=== PATIENT | female | born 1975 | race Caucasian/White ===

== ENCOUNTER → 2017-04-12 | Outpatient (CLI) | payer MEDICAID ==
[~2017-04-12] MED LIST: ATIVAN1 MG PO; BUSPAR 10MG TAB10 MG PO; EFFEXOR100 MG PO; FLEET ENEMA 13135 ML RC; IBUPROFEN800 MG PO; LEVOTHYROXINE0.15 MG PO; LORTAB 5/500 501 TAB PO; MAGNESIUM CITRA1 BOT PO; NAPROSYN 500MG500 MG PO; NEURONTIN800 MG PO; PEN-VK500 MG PO; PHENERGAN 25MG.25 M1 PO; SEROQUEL200 MG PO; ULTRAM 50 MG TA50 MG PO; VICODIN 5/500 T1 TAB PO
--- NOTE | 2017-04-13 09:56 | RADIOLOGY REPORT PS360 ---
MRI-LOW EXT ANY JOINT W/O-LT HISTORY: Anterior and posterior knee pain following injury INJURY OF LT KNEE, INITIAL ENCOUNTER ORDERING PHYSICIAN: LUDIN MCDONOUGH MD PATIENT AGE: 41 years COMPARISON: Radiograph of 03/21/2017 TECHNIQUE: Standard multiplanar multiecho sequences are performed without contrast. FINDINGS: There is discontinuity of the mid aspect of the posterior cruciate ligament consistent with tear of the PCL. The margins of the tear are somewhat alignment in nature and mildly contracted. There is partial tear or sprain of the proximal fibers of the ACL as well. Medial collateral ligament is discontinuous proximally consistent with a tear of the MCL. The lateral collateral ligament, patellar tendon, and quadriceps tendon appear intact. No obvious meniscal tear. Abnormal increased T2 signal intensity involves the distal femur laterally and in the intercondylar region extending into the lateral femoral condyle consistent with a bone bruise. There is a curvilinear area of decreased T1 and T2 signal involving the posterior aspect of the lateral femoral condyle consistent with a nondisplaced micro-fracture. There is is a small knee joint effusion. Soft tissue edema is present about the knee greater along the medial aspect. IMPRESSION: 1. Complete tear of the posterior cruciate ligament. 2. Partial tear versus sprain of the ACL 3. Complete tear of the medial collateral ligament 4. Bone bruise of the distal femur most extensive involving the lateral femoral condyle with nondisplaced curvilinear microfracture of the posterior aspect of the lateral femoral condyle with small knee joint effusion and soft tissue swelling medially
== END ==
LOC: RAD 14:29
DX: S89.92XA Unspecified injury of left lower leg, initial encounter (principal)